=== PATIENT | female | born 1970 ===

== ENCOUNTER 2019-12-14 07:30 | Observation (INO) ==
[2019-12-09 11:59] LABS: Apearance,Urine CLEAR (Clear); Bacteria,Urine Occasional /HPF (Few); Bilirubin,Urine Negative (Negative); Blood, Urine Negative (Negative); Glucose,Urine (UA) Negative (Negative); Ketones,Urine Negative (Negative); Mucus,Urine Occasional /LPF (Occasional); Nitrite,Urine Negative (Negative); Protein,Urine Negative; RBC,Urine <1 /HPF (0-4); Squamous Epithelial Cell,Urine Occasional /HPF (0-10); Urine Color Yellow (Yellow); Urine Specific Gravity 1.018 (1.001-1.035); Urine Urobilinogen < 2.0 EU/DL (0.2-1.0); WBC,Urine <1 /HPF (0-6)
[2019-12-09 12:17] LABS: Basophils % 0.6 % (0.0-0.8); Eosinophils # 0.1 10*3/uL (0.0-0.87); Eosinophils % 3.9 % (0.00-10.9); Hemoglobin 12.6 GM/DL (12.0-16.0); Lymphocytes # 1.3 10*3/uL (1.4-4.0); Lymphocytes % 36.1 % (21.3-54.2); Mean Corpuscular HGB Conc 29.3 GM/DL (32-36); Mean Corpuscular Volume 82.5 FL (87-102); Neutrophils % 50.4 % (38.7-73.9); Platelet Count 144 T/CUMM (130-400); Red Blood Count 5.21 MC/CUMM (3.8-5.5); Red Cell Distribution Width 20.9 % (9.3-17.3); White Blood Count 3.6 T/CUMM (4-12)
[~2019-12-14 07:30] MED LIST: LACTATED RINGERS 1,000 ML IV SCH; TISSUE ADHESIVE 1 EACH APPLICATOR TOP ONE
[2019-12-14] MEDS ORDERED: FAMOTIDINE 20 MG TABLET PO ONE (07:54)
[2019-12-14] MEDS ORDERED: DIAZEPAM 5 MG TABLET PO ONE (07:54)
[2019-12-14] MEDS ORDERED: FAMOTIDINE 20 MG TABLET ONE (09:03)
[2019-12-14] MEDS ORDERED: DIAZEPAM 5 MG TABLET ONE (09:03)
[2019-12-14] MEDS ORDERED: LIDOCAINE 2% 5 ML VIAL ONE (14:44)
[2019-12-14] MEDS ORDERED: SEVOFLURANE 1 UNIT/15 MINUTE INH ONE (14:44)
[2019-12-14] MEDS ORDERED: propofoL 200 MG/20 ML VIAL IV ONE (14:44)
[2019-12-14] MEDS ORDERED: GLYCOPYRROLATE 0.4 MG/2 ML VIAL ONE (14:45)
[2019-12-14] MEDS ORDERED: MIDAZOLAM 2 MG/2 ML VIAL ONE (14:45)
[2019-12-14] MEDS ORDERED: fentaNYL 100 MCG/2 ML VIAL ONE (14:45)
[2019-12-14] MEDS ORDERED: DEXAMETHASONE 4 MG/1 ML VIAL ONE ×2 (14:45)
[2019-12-14] MEDS ORDERED: ONDANSETRON 4 MG/2 ML VIAL ONE (14:45)
[2019-12-14] MEDS ORDERED: FUROSEMIDE 20 MG/2 ML VIAL ONE (14:45)
[2019-12-14] MEDS ORDERED: NEOSTIGMINE 10 MG/10 ML VIAL ONE (14:46)
[2019-12-14] MEDS ORDERED: ROCURONIUM 100 MG/10 ML VIAL IV ONE (14:46)
[2019-12-14] MEDS ORDERED: ACETAMINOPHEN 1,000 MG/100 ML VIAL IV ONE (14:46)
[2019-12-14] MEDS ORDERED: LACTATED RINGERS 1,000 ML IV ONE (14:46)
[2019-12-14 14:52] LABS: Apearance,Urine Slightly Hazy (Clear); Bacteria,Urine Occasional /HPF (Few); Bilirubin,Urine Negative (Negative); Blood, Urine Negative (Negative); Glucose,Urine (UA) Negative (Negative); Ketones,Urine Negative (Negative); Mucus,Urine Occasional /LPF (Occasional); Nitrite,Urine Negative (Negative); Protein,Urine Negative; RBC,Urine 1 /HPF (0-4); Squamous Epithelial Cell,Urine Occasional /HPF (0-10); Urine Color Yellow (Yellow); Urine Specific Gravity 1.012 (1.001-1.035); Urine Urobilinogen < 2.0 EU/DL (0.2-1.0); WBC,Urine <1 /HPF (0-6)
[2019-12-14] MEDS ORDERED: MAGNESIUM HYDROXIDE SUSP 30 ML UDCUP PO PRN (15:06)
[2019-12-14] MEDS ORDERED: ONDANSETRON 4 MG/2 ML VIAL IV PRN ×2 (15:06→15:23)
[2019-12-14] MEDS ORDERED: ACETAMINOPHEN 325 MG TABLET PO PRN (15:06)
[2019-12-14] MEDS ORDERED: BISACODYL 10 MG SUPP RECTAL PRN (15:06)
[2019-12-14] MEDS ORDERED: BENZOCAINE/MENTHOL LOZENGE 18/BOX PO PRN (15:06)
[2019-12-14] MEDS ORDERED: oxyCODONE/ACETAMINOPHEN 5-325 MG TABLET PO PRN (15:06)
[2019-12-14] MEDS ORDERED: DOCUSATE SODIUM 100 MG CAPSULE PO PRN (15:06)
[2019-12-14] MEDS ORDERED: IBUPROFEN 800 MG TABLET PO PRN (15:06)
[2019-12-14] MEDS ORDERED: MEPERIDINE 25 MG/1 ML VIAL ONE (15:19)
[2019-12-14] MEDS: MEPERIDINE 25 MG/1 ML VIAL IV PRN ×2 (15:20→15:50)
[2019-12-14] MEDS ORDERED: diphenhydrAMINE 50 MG/1 ML VIAL IV PRN (15:23)
[2019-12-14] MEDS ORDERED: PROMETHAZINE INJ 25 MG in SODIUM CHLORIDE 0.9% 50 ML IV PRN (15:23)
[2019-12-14] MEDS ORDERED: HYDROmorphone 2 MG/1 ML VIAL IV PRN (15:23)
[2019-12-14] MEDS ORDERED: KETOROLAC 30 MG/1 ML VIAL ONE (15:28)
[2019-12-14] MEDS: KETOROLAC 30 MG/1 ML VIAL IV SCH ×2 (15:37→21:10)
[2019-12-14] MEDS: LACTATED RINGERS 1,000 ML IV SCH (15:38)
[2019-12-14] MEDS ORDERED: MEPERIDINE 50 MG/1 ML VIAL IV PRN (17:40)
[2019-12-14] MEDS ORDERED: hydroCHLOROthiazide 25 MG TABLET PO ONE (19:27)
[2019-12-14] MEDS: hydroCHLOROthiazide 12.5 MG CAPSULE PO SCH (20:03)
[2019-12-14] MEDS: amLODIPine 2.5 MG TABLET PO SCH (20:03)
[2019-12-14] MEDS ORDERED: amLODIPine 2.5 MG TABLET PO SCH (21:00)
[2019-12-14] MEDS ORDERED: hydroCHLOROthiazide 12.5 MG CAPSULE PO SCH (21:00)
[2019-12-14] MEDS: ceFAZolin 1,000 MG in SYRINGE 1 EACH IV SCH (21:10)
[2019-12-15] MEDS: LACTATED RINGERS 1,000 ML IV SCH (00:27)
[2019-12-15] MEDS ORDERED: ONDANSETRON 4 MG TABLET PO PRN (03:24)
[2019-12-15] MEDS: KETOROLAC 30 MG/1 ML VIAL IV SCH ×2 (03:25→09:45)
[2019-12-15 03:39] LABS: Hematocrit 43.4 VOL% (35.7-47.0); Hemoglobin 12.9 GM/DL (12.0-16.0); Immature Granulocytes % 0.2 %; Immature Granulocytes Absolute 0.02 #; Lymphocytes # 0.6 10*3/uL (1.4-4.0); Lymphocytes % 6.7 % (21.3-54.2); Mean Corpuscular HGB Conc 29.7 GM/DL (32-36); Mean Corpuscular Volume 83.8 FL (87-102); Monocytes % 2.2 % (1.7-12.7); Neutrophils % 90.9 % (38.7-73.9); Platelet Count 139 T/CUMM (130-400); Red Blood Count 5.18 MC/CUMM (3.8-5.5); White Blood Count 8.8 T/CUMM (4-12)
[2019-12-15 04:23] LABS: Hypochromasia 1+; Lymphocytes 11 % (20-55); Platelet Estimate Adequate; Segmented Neutrophils 87 % (50-85); Total Cells Counted 100
[2019-12-15] MEDS: ceFAZolin 1,000 MG in SYRINGE 1 EACH IV SCH (05:10)
[2019-12-15 07:28] VITALS: BP 125/75
[2019-12-15] MEDS ORDERED: amLODIPine 2.5 MG TABLET PO SCH (09:00)
[2019-12-15] MEDS: amLODIPine 2.5 MG TABLET PO SCH (09:45)
[2019-12-15] MEDS: hydroCHLOROthiazide 12.5 MG CAPSULE PO SCH (09:45)
== END 2019-12-15 13:00 | disposition home or self-care (01) ==
LOC: N.OB 07:30 → N.OR 07:30 → N.SDSINP 07:31 → N.OB 16:22
PROVIDERS: ADMIT Obstetrics & Gynecology; ATTEND Obstetrics & Gynecology